=== PATIENT | female | born 1960 | race Hispanic/Latino ===

== ENCOUNTER 2024-02-09 23:02 | Emergency (ER) | payer MEDICARE ==
[~2024-02-09] VITALS: Ht 160 cm; Wt 64.5 kg
[2024-02-09] MEDS ORDERED: NITROGLYCERIN 0.4 MG SUBL ONE (23:04)
[2024-02-09] MEDS ORDERED: ASPIRIN 81 MG CHEW ONE (23:05)
[2024-02-09] MEDS ORDERED: HEParin SOD (PORCINE) 5,000 UNIT/ML SYR IV ONE (23:15)
[2024-02-09] MEDS ORDERED: NITROGLYCERIN 50MG/D5W 250 ML IV SCH (23:15)
[2024-02-09] MEDS ORDERED: ASPIRIN 325 MG TAB PO ONE (23:15)
[2024-02-09] MEDS ORDERED: HEPARIN SOD,PORK IN 0.45% NACL 500 ML IV SCH (23:15)
[2024-02-09 23:25] LABS: HEMOGLOBIN 11.8 g/dL (12.0-18.0)
[2024-02-09 23:27] LABS: BASOPHILS 0.6 % (0-2); EOSINOPHILS 1.3 % (0-6); HEMATOCRIT 34.1 % (35.0-50.0); LYMPHOCYTES 40.3 % (24-44); MCHC 34.7 g/dl (30-36); MCV 92.2 fl (81-99); MONOCYTES 5.7 % (0-12); NEUTROPHILS 52.1 % (39-80); PLATELET COUNT 202 K/uL (140-440); RDW 13.3 (10.5-15.0)
[2024-02-09] MEDS ORDERED: ondansetron HCL 4 MG/2 ML VIAL IV ONE (23:30)
[2024-02-09] MEDS ORDERED: ASPIRIN 81 MG CHEW PO ONE (23:30)
[2024-02-09] MEDS ORDERED: MORPHINE SULFATE 4 MG/ML VIAL IV PRN (23:30)
[2024-02-09] MEDS ORDERED: fentaNYL citrate 100 MCG/2 ML VIAL ONE (23:38)
[2024-02-09 23:39] LABS: ALBUMIN 3.3 g/dL (3.4-5.0); ALBUMIN/GLOBULIN RATIO 0.77 (1.1-2.4); ANION GAP 14.8 (7-21); BILIRUBIN, TOTAL 0.3 ng/dL (0.2-1.0); BUN/CREATININE RATIO 21.14 (6.0-28.6); CALCIUM 8.9 mg/dL (8.5-10.1); CREATININE, SERUM 2.79 mg/dL (0.55-1.02); MAGNESIUM 2.1 mg/dL (1.8-2.4); POTASSIUM 3.8 mmol/L (3.5-5.1); PROTEIN, TOTAL 7.6 g/dL (6.4-8.2)
[2024-02-09 23:45] VITALS: BP 125/76
[2024-02-09] MEDS ORDERED: fentaNYL citrate 100 MCG/2 ML VIAL IV ONE (23:45)
[2024-02-09 23:46] LABS: INR 0.92 (0.80-1.30); PROTIME 11.9 Sec (11.2-14.2)
[2024-02-09 23:48] LABS: PARTIAL THROMBOPLASTIN TIME 34.1 Sec (22.9-41.3)
[2024-02-10] MEDS ORDERED: METOPROLOL TART25 MG PO (00:04)
[2024-02-10] MEDS ORDERED: ZESTRIL40 MG PO (00:05)
[2024-02-10] MEDS ORDERED: ATORVASTATIN CA40 MG PO (00:05)
[2024-02-10] MEDS ORDERED: NITROGLYCERIN 0.4 MG SUBL SL PRN (00:45)
--- NOTE | 2024-02-11 09:01 | EKG ---
[facility] [address] [place], [place] [address] Signed Normal sinus rhythm ST elevation, consider inferolateral injury or acute infarct ACUTE CO / STEMI Consider right ventricular involvement in acute inferior infarct Abnormal ECG No previous ECGs available Confirmed by August Unger MD ([id number]) on 02/11/2024 9:01:18 AM Electronically Signed By: AUGUST UNGER 02/11/24 0901 PATIENT NAME: AGUIARGABRIELLA Electrocardiogram DATE OF : 56 PHYSICIAN: AUGUST UNGER REPORT #: [id number] REPORT IS CONFIDENTIAL AND NOT TO BE RELEASED WITHOUT AUTHORIZATION
== END 2024-02-09 23:52 | disposition short-term general hospital (02) ==
LOC: ED 23:02
PROVIDERS: Internal Medicine
DX: I21.3 ST elevation (STEMI) myocardial infarction of unspecified site (principal); E11.9 Type 2 diabetes mellitus without complications
CPT/HCPCS: 36415; 71045; 80053; 83735; 84484; 85025; 85610; 85730; 93005; 93010; 96374; 96375; 99285-25; A9270; J1644; J2405; J3010